=== PATIENT | male | born 1995 | race Two or more races ===

== ENCOUNTER → 2018-05-05 | Emergency (ER) | payer SELFPAY ==
[~2018-05-05] VITALS: Ht 172.7 cm; Wt 108.9 kg
[~2018-05-05] MED LIST: NKM
[2018-05-05 06:10] VITALS: BP 120/76
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
--- NOTE | 2018-05-05 06:16 | NUR ---
ED Nurse Note: Pt cleared for discharge. Pt's discharge instructions given to police after pt verbalized understanding. Pt AAOx4, ambulatory. NAD and escorted out of ER in police custody.
== END ==
LOC: EMR 06:14
DX: Z02.89 Encounter for other administrative examinations (principal); S00.81XA Abrasion of other part of head, initial encounter; Y04.0XXA Assault by unarmed brawl or fight, initial encounter; Y92.9 Unspecified place or not applicable; F17.200 Nicotine dependence, unspecified, uncomplicated
CPT/HCPCS: 99282